=== PATIENT | female | born 1955 | race Caucasian/White ===

== ENCOUNTER → 2019-09-27 13:54 | Outpatient (CLI) | payer OTHER, SELFPAY ==
--- NOTE | 2019-09-27 | DI.ECHO.S_ITS ---
[facility] +---------+ [facility] +---------+ : : [address] : [address] : : : : [id number] : : : : Phone: [phone]+ Echocardiogram Report + + :Name: LEIGH WAHL Study Date: 09/27/2019 Height: 63 in : :[facility] Weight: 218 lb : : Gender: Female BSA: 2.0 m2 : :: 1955 Age: 63 yrs BP: 146/88 mmHg: :Reason For Study: Cardiomyopathy : : Performed By: [facility] Staff : :Referring: BASILIO ANGULO : + + Interpretation Summary 1) Normal left ventricular size and thickness with mildly reduced systolic function (EF 45-50%). 2) Normal right ventricular size and function. 3) No significant valvular abnormalities. 4) No prior Echo available for comparison. Procedure: A two-dimensional transthoracic echocardiogram with color flow and Doppler was performed. The study quality was technically adequate. There is no prior echocardiogram noted for this patient. The patient was in normal sinus rhythm during the exam. Left Ventricle: The left ventricle is normal in size. There is normal left ventricular wall thickness. The ejection fraction is estimated to be 45-50%. Left ventricular systolic function is mildly reduced. Right Ventricle: The right ventricle is normal in size and function. Atria: The left atrium is moderately dilated. Right atrial size is normal. The interatrial septum is intact with no evidence for an atrial septal defect. Mitral Valve: The mitral valve is normal in structure and function. There is trace mitral regurgitation. Aortic Valve: The aortic valve is trileaflet. The aortic valve opens well. There is no aortic valve stenosis. No aortic regurgitation is present. Tricuspid Valve: The tricuspid valve is normal in structure and function. There is trace tricuspid regurgitation. The right ventricular systolic pressure is estimated to be at least 21 mmHg based on an estimated right atrial pressure of 3 mm Hg. Pulmonic Valve: The pulmonic valve is normal in structure and function. There is trace pulmonic regurgitation. Great Vessels: The aortic root is normal size. The dimensions of the ascending aorta are normal. The pulmonary artery is normal size. The IVC is of normal diameter and collapses greater than 50% with a sniff. This suggests a low right atrial pressure of 3 mm Hg. Pericardium/ Pleura There is no pericardial effusion. There is no pleural effusion. MMode/2D Measurements & Calculations LVIDd: 4.7 cm LVOT diam: 2.0 cm LVIDs: 3.5 cm Ao root diam: 2.9 cm FS: 25.3 % Aortic Jxn: 2.7 cm EPSS: 1.0 cm IVSd: 0.73 cm LVPWd: 1.00 cm LV arriaga. diameter/BSA (cm/m^2): 2.3 LV sys. diameter/BSA (cm/m^2): 1.8 LA A2 area: 26.9 cm2 RA long axis: 4.2 cm LA A4 area: 25.0 cm2 RA area: 14.5 cm2 LA length (vol): 5.2 cm RA vol: 43.0 ml LA vol: 110.1 ml RA : 21.4 ml/m2 LA vol index: 54.9 ml/m2 IVC diam: 1.8 cm TAPSE: 2.1 cm Doppler Measurements & Calculations Ao V2 max: 101.1 cm/sec MV E max rl: 74.2 cm/sec Ao V2 mean: 66.3 cm/sec MV A max rl: 90.1 cm/sec Ao max P.1 mmHg MV E/A: 0.82 Ao mean P.1 mmHg Med Peak E' Rl: 6.5 cm/sec Ao V2 VTI: 25.0 cm E/E' med: 11.4 Lat Peak E' Rl: 10.2 cm/sec E/E' lat: 7.3 E/e' average: 9.3 MV dec time: 0.24 sec TR max rl: 213.0 cm/sec TR max P.1 mmHg PA V2 max: 64.2 cm/sec PA V2 mean: 48.6 cm/sec PA mean P.0 mmHg PA Accel Time: 0.16 sec Reading Physician:10:29 AM
== END ==
PROVIDERS: Family Provider Family Medicine; PCP Family Medicine; Visit Provider Internal Medicine Cardiovascular Disease
DX: I42.9 Cardiomyopathy, unspecified (principal)
CPT/HCPCS: 93306